=== PATIENT | female | born 1990 | race African-American/Black ===

== ENCOUNTER 2017-08-25 02:23 | Emergency (ER) | payer MEDICAID, OTHER ==
[~2017-08-25] VITALS: Ht 170.2 cm; Wt 75.0 kg
[~2017-08-25 02:23] MED LIST: ALBU6.7H3
[2017-08-25] MEDS ORDERED: KETOROLAC 30MG/ML VIAL IM ONE (04:00)
[2017-08-25 05:24] VITALS: BP 110/65
== END 2017-08-25 05:25 | disposition home or self-care (01) ==
LOC: ER 02:23
DX: S80.01XA Contusion of right knee, initial encounter (principal); S70.01XA Contusion of right hip, initial encounter; V49.59XA Passenger injured in collision with other motor vehicles in traffic accident, initial encounter; Y93.89 Activity, other specified; Y92.488 Other paved roadways as the place of occurrence of the external cause
CPT/HCPCS: 73502; 73562; 81025; 96372; 99284; J1885; Z7610

== ENCOUNTER 2024-02-27 11:54 | Emergency (ER) | payer MEDICAID ==
[~2024-02-27] VITALS: Ht 167.6 cm; Wt 74.8 kg
[2024-02-27 12:03] VITALS: BP 129/40; TEMP 98.2; O2SAT 100
[2024-02-27] MEDS: DEXAMETHASONE 10 MG/ML VIAL IM ONE (12:55)
[2024-02-27] MEDS: IPRATROPIUM/ALBUTEROL 0.5-3(2.5)MG/3ML NEB HHN ONE (13:02)
[2024-02-27 13:04] VITALS: PULSE 78; RESP 16; O2SAT 99
[2024-02-27] MEDS ORDERED: P50 MT (14:08)
[2024-02-27] MEDS ORDERED: ALBU2.5V13 NEB (14:08)
== END 2024-02-27 15:20 | disposition home or self-care (01) ==
LOC: ER 12:11
DX: J45.901 Unspecified asthma with (acute) exacerbation (principal); Z90.49 Acquired absence of other specified parts of digestive tract
CPT/HCPCS: 94640; 96372; 99283; J1100; Z7610 ×3

== ENCOUNTER 2025-03-07 17:30 | Emergency (ER) | payer MEDICAID ==
[~2025-03-07] VITALS: Ht 167.6 cm; Wt 91.0 kg
[~2025-03-07 17:30] MED LIST changes: +ALBU2.5V13 NEB; +P50 MT
[2025-03-07 17:33] VITALS: TEMP 37.1; O2SAT 100
[2025-03-07 18:10] LABS: BASOPHILS % 0.6 % (0.0-2.0); EOSINOPHILS % 3.8 % (0.0-5.0); HEMATOCRIT. 29.5 % (36.0-48.0); HEMOGLOBIN. 9.8 g/dL (12.0-16.0); LYMPHOCYTES % 46.9 % (20.0-50.0); MEAN PLATELET VOLUME 7.8 fl (7.4-10.4); MONOCYTES % 6.0 % (2.0-8.0); NEUTROPHILS % 42.7 % (40.0-76.0); PLATELET 383 x1000/uL (130-400); RED BLOOD CELL COUNT 3.83 mill/uL (4.2-5.4); RED CELL DISTRIBUTION WIDTH 15.9 % (11.6-14.6)
[2025-03-07 18:25] LABS: CREATININE 1.1 mg/dL (0.6-1.0); UREA NITROGEN BLOOD 7 mg/dL (9-23)
[2025-03-07 18:27] LABS: TROPONIN I HIGH SENSITIVITY < 4 ng/L (3.0-34)
[2025-03-07] MEDS: MECLIZINE 25MG TABLET PO ONE (19:29)
[2025-03-07] MEDS: ACETAMINOPHEN 325MG TABLET PO ONE (19:30)
[2025-03-07] MEDS: POTASSIUM CHLORIDE 20MEQ TABLET SR PO ONE (20:09)
[2025-03-07] MEDS: KETOROLAC 15MG/ML VIAL IM ONE (20:10)
[2025-03-07 20:18] LABS: CLARITY URINE CLEAR (CLEAR); COLOR URINE YELLOW (YELLOW); GLUCOSE URINE NEGATIVE (NEGATIVE); KETONES URINE NEGATIVE (NEGATIVE); LEUKOCYTE ESTERASE URINE NEGATIVE (NEGATIVE); NITRITE URINE NEGATIVE (NEGATIVE); OCCULT BLOOD URINE NEGATIVE (NEGATIVE); PH URINE 7.5 (4.5-8.0); PROTEIN URINE NEGATIVE (NEGATIVE); SPECIFIC GRAVITY URINE 1.007 (1.005-1.030); UROBILINOGEN URINE 0.2 E.U./dL (0.2-1.0)
[2025-03-07] MEDS ORDERED: MECL-299 MT (20:20)
[2025-03-07] MEDS ORDERED: IBUP-1455 MT (20:20)
[2025-03-07 20:26] LABS: HCG SCREEN NEGATIVE
[2025-03-07] MEDS: DEXAMETHASONE 10 MG/ML VIAL IM ONE (20:28)
[2025-03-07 20:37] VITALS: BP 102/63; PULSE 84; RESP 12; O2SAT 100
== END 2025-03-07 20:39 | disposition home or self-care (01) ==
LOC: ER 17:47
DX: R51.9 Headache, unspecified (principal); R42 Dizziness and giddiness; J45.909 Unspecified asthma, uncomplicated; Q87.0 Congenital malformation syndromes predominantly affecting facial appearance; Z79.899 Other long term (current) drug therapy; Z90.49 Acquired absence of other specified parts of digestive tract
CPT/HCPCS: 99285; 70450; 80048; 81003; 81025; 84703; 85025; 84484; 36415; 93005; 96372; J1885; J8597; J1100

== ENCOUNTER 2025-03-21 09:17 | Emergency (ER) | payer MEDICAID ==
[~2025-03-21] VITALS: Ht 167.6 cm; Wt 91.0 kg
[~2025-03-21 09:17] MED LIST changes: +IBUP-1455 MT; +MECL-299 MT
[2025-03-21 09:22] VITALS: O2SAT 97
[2025-03-21] MEDS: ACETAMINOPHEN 325MG TABLET PO ONE (11:10)
[2025-03-21] MEDS: KETOROLAC 30MG/ML VIAL IM ONE (11:11)
[2025-03-21] MEDS ORDERED: IBUP-1455 MT (14:29)
[2025-03-21] MEDS ORDERED: FLUT9.9S BOTHNSTRLS (14:29)
[2025-03-21] MEDS ORDERED: ACYC-58 MT (14:29)
[2025-03-21] MEDS ORDERED: CLAR10 MT (14:29)
[2025-03-21 14:52] VITALS: BP 122/65; PULSE 80; RESP 16; TEMP 36.8; O2SAT 100
== END 2025-03-21 14:54 | disposition home or self-care (01) ==
LOC: ER 09:17
DX: G44.209 Tension-type headache, unspecified, not intractable (principal); H69.90 Unspecified Eustachian tube disorder, unspecified ear; J45.909 Unspecified asthma, uncomplicated; Q87.0 Congenital malformation syndromes predominantly affecting facial appearance; Z90.49 Acquired absence of other specified parts of digestive tract; Z79.899 Other long term (current) drug therapy
CPT/HCPCS: 81025; 85651; 36415; 96372; 99283; J1885; Z7610

== ENCOUNTER 2025-04-01 16:14 | Emergency (ER) | payer MEDICAID ==
[~2025-04-01] VITALS: Ht 170.2 cm; Wt 106.0 kg
[~2025-04-01 16:14] MED LIST changes: +ACYC-58 MT; +CLAR10 MT; +FLUT9.9S BOTHNSTRLS
[2025-04-01 16:20] VITALS: O2SAT 99
[2025-04-01 17:29] LABS: BASOPHILS % 0.3 % (0.0-2.0); EOSINOPHILS % 1.2 % (0.0-5.0); HEMATOCRIT. 32.6 % (36.0-48.0); HEMOGLOBIN. 10.5 g/dL (12.0-16.0); LYMPHOCYTES % 33.8 % (20.0-50.0); MEAN PLATELET VOLUME 7.7 fl (7.4-10.4); MONOCYTES % 8.3 % (2.0-8.0); NEUTROPHILS % 56.4 % (40.0-76.0); PLATELET 442 x1000/uL (130-400); RED BLOOD CELL COUNT 4.14 mill/uL (4.2-5.4); RED CELL DISTRIBUTION WIDTH 17.1 % (11.6-14.6)
[2025-04-01 17:44] LABS: CREATININE 1.1 mg/dL (0.6-1.0); UREA NITROGEN BLOOD 6 mg/dL (9-23)
[2025-04-01 18:07] LABS: TROPONIN I HIGH SENSITIVITY < 4 ng/L (3.0-34)
[2025-04-01 18:11] LABS: T4 FREE 1.41 ng/dL (0.89-1.76)
[2025-04-01 18:46] LABS: HCG SCREEN NEGATIVE
[2025-04-01] MEDS ORDERED: HYDR-3992 MT (19:35)
[2025-04-01] MEDS: LIDOCAINE 5% PATCH TOP SCH (19:47)
[2025-04-01] MEDS: ACETAMINOPHEN 325MG TABLET PO ONE (19:47)
[2025-04-01 19:50] VITALS: BP 122/65; PULSE 74; RESP 15; TEMP 36.8; O2SAT 100
== END 2025-04-01 19:52 | disposition home or self-care (01) ==
LOC: ER 16:14
DX: G47.00 Insomnia, unspecified (principal); R00.2 Palpitations; J45.909 Unspecified asthma, uncomplicated; E86.0 Dehydration; E87.6 Hypokalemia
CPT/HCPCS: 36415; 71045; 80048; 83520; 84439; 84443; 84484; 84703; 85025; 93005; 99285

== ENCOUNTER 2025-04-05 19:44 | Emergency (ER) | payer MEDICAID, OTHER ==
[~2025-04-05] VITALS: Ht 167.6 cm; Wt 95.4 kg
[~2025-04-05 19:44] MED LIST changes: +HYDR-3992 MT
[2025-04-05 19:59] VITALS: O2SAT 100
[2025-04-05 21:26] LABS: BASOPHILS % 1.1 % (0.0-2.0); EOSINOPHILS % 2.6 % (0.0-5.0); HEMATOCRIT. 31.1 % (36.0-48.0); HEMOGLOBIN. 10.1 g/dL (12.0-16.0); LYMPHOCYTES % 35.0 % (20.0-50.0); MEAN PLATELET VOLUME 7.5 fl (7.4-10.4); MONOCYTES % 7.2 % (2.0-8.0); NEUTROPHILS % 54.1 % (40.0-76.0); PLATELET 368 x1000/uL (130-400); RED BLOOD CELL COUNT 3.98 mill/uL (4.2-5.4); RED CELL DISTRIBUTION WIDTH 16.9 % (11.6-14.6)
[2025-04-05] MEDS: ACETAMINOPHEN 325MG TABLET PO ONE (21:27)
[2025-04-05 21:37] LABS: HCG SCREEN NEGATIVE
[2025-04-05 21:40] LABS: CREATININE 1.1 mg/dL (0.6-1.0); UREA NITROGEN BLOOD 6 mg/dL (9-23)
[2025-04-05 21:41] LABS: TROPONIN I HIGH SENSITIVITY < 4 ng/L (3.0-34)
[2025-04-05 21:42] LABS: ASPARTATE AMINOTRANSFERASE 17 IU/L (<34); BILIRUBIN DIRECT < 0.1 mg/dL (<=3.0); BILIRUBIN TOTAL 0.3 mg/dL (0.1-1.0); PROTEIN TOTAL 7.6 g/dL (6.0-8.3)
[2025-04-05] MEDS ORDERED: IBUP-2028 MT (22:51)
[2025-04-05] MEDS: KETOROLAC 30MG/ML VIAL IM ONE (23:04)
[2025-04-05 23:07] VITALS: BP 110/53; PULSE 72; RESP 18; O2SAT 99
== END 2025-04-05 23:09 | disposition home or self-care (01) ==
LOC: ER 19:44
DX: R07.89 Other chest pain (principal); J45.909 Unspecified asthma, uncomplicated
CPT/HCPCS: 99285; 71045; 80076; 80048; 84703; 85025; 84484; 36415; 93005; 96372; J1885

== ENCOUNTER 2025-04-10 17:51 | Emergency (ER) | payer OTHER ==
[~2025-04-10] VITALS: Ht 167.6 cm; Wt 94.0 kg
[~2025-04-10 17:51] MED LIST changes: +IBUP-2028 MT
[2025-04-10 18:24] VITALS: O2SAT 100
[2025-04-10 21:23] LABS: BASOPHILS % 0.8 % (0.0-2.0); EOSINOPHILS % 2.1 % (0.0-5.0); HEMATOCRIT. 31.6 % (36.0-48.0); HEMOGLOBIN. 10.2 g/dL (12.0-16.0); LYMPHOCYTES % 24.3 % (20.0-50.0); MEAN PLATELET VOLUME 7.8 fl (7.4-10.4); MONOCYTES % 5.7 % (2.0-8.0); NEUTROPHILS % 67.1 % (40.0-76.0); PLATELET 346 x1000/uL (130-400); RED BLOOD CELL COUNT 4.03 mill/uL (4.2-5.4); RED CELL DISTRIBUTION WIDTH 16.9 % (11.6-14.6)
[2025-04-10 21:35] LABS: HCG SCREEN NEGATIVE
[2025-04-10 21:37] LABS: CREATININE 1.0 mg/dL (0.6-1.0); UREA NITROGEN BLOOD 6 mg/dL (9-23)
[2025-04-10 21:38] LABS: ASPARTATE AMINOTRANSFERASE 20 IU/L (<34)
[2025-04-10 21:39] LABS: BILIRUBIN DIRECT 0.1 mg/dL (<=3.0); BILIRUBIN TOTAL 0.4 mg/dL (0.1-1.0); PROTEIN TOTAL 7.6 g/dL (6.0-8.3)
[2025-04-10 22:18] VITALS: BP 120/70; PULSE 74; RESP 18; TEMP 36.9; O2SAT 100
== END 2025-04-10 22:22 | disposition home or self-care (01) ==
LOC: ER 17:51
DX: R51.9 Headache, unspecified (principal); J45.909 Unspecified asthma, uncomplicated; Q87.0 Congenital malformation syndromes predominantly affecting facial appearance; D64.9 Anemia, unspecified; Z90.49 Acquired absence of other specified parts of digestive tract; Z79.899 Other long term (current) drug therapy
CPT/HCPCS: 36415; 80048; 80076; 83735; 84703; 85025; 99284